=== PATIENT | female | born 1985 | race African-American/Black ===

== ENCOUNTER 2020-11-07 18:16 | Outpatient (CLI) | payer OTHER, SELFPAY ==
--- NOTE | ~2020-11-07 | CT_ITS ---
EXAMINATION: CTA chest PE protocol DATE: 11/07/2020 19:40 INDICATION: Shortness of breath, history of pulmonary embolism TECHNIQUE: Computed tomography angiography (CTA) of the chest was performed with 100 mL Omnipaque-350 intravenous contrast timed to evaluate the pulmonary arteries. Coronal maximum intensity projection 3D-reconstructions were created by the technologist. The dose-length product (DLP) was 815.11 mGy-cm. Automated exposure control and iterative reconstruction technique were employed. COMPARISON: None. FINDINGS: The pulmonary arteries are well-opacified. No pulmonary embolism is identified. There is a 1.4 cm right thyroid nodule, previously evaluated by thyroid ultrasound. The lungs are free of acute opacities. There is no pleural effusion or pneumothorax. A 3 mm nodule in the superior segment of the left lower lobe likely reflects old granulomatous disease. No pathologically enlarged thoracic lymph nodes are identified. The heart size is normal. IMPRESSION: 1. No pulmonary embolism or acute cardiopulmonary abnormality. Reviewed, dictated and finalized at location A. [employer]
[2020-11-07 20:00] LABS: Estimated Glomerular Filt Rate > 60
== END 2020-11-07 18:17 | disposition home or self-care (01) ==
LOC: ANHIMG 18:22
DX: Z86.711 Personal history of pulmonary embolism (principal); U07.1 COVID-19
CPT/HCPCS: 71275; Q9967

== ENCOUNTER 2021-03-25 16:47 | Emergency (ER) | payer OTHER, SELFPAY ==
--- NOTE | ~2021-03-25 | XR_ITS ---
XR foot RT min 3V DATE: 03/25/2021 17:09 INDICATION: Stubbed right fifth toe yesterday. Pain. TECHNIQUE: 4 views COMPARISON: None FINDINGS: No fracture or dislocation, periosteal reaction or bone destruction. Mild posterior and sli ght plantar calcaneal enthesopathy. IMPRESSION: No fracture is detected Reviewed, dictated and finalized at location A. IMPRESSION: No fracture is detected
[2021-03-25 16:56] VITALS: BP 119/84; PULSE 128; RESP 16; TEMP 37.3; O2SAT 99
--- NOTE | 2021-03-25 16:56 | ED.LOWEXIN ---
HPI - Extremity Injury (Lower) General Chief Complaint: Extremity Injury, Lower Stated Complaint: right foot pinky toe Time Seen by Provider: 03/25/21 16:56 Source: patient and RN notes reviewed Mode of arrival: ambulatory Limitations: no limitations History of Present Illness HPI Narrative: 35-year-old female presents to the [facility] with complaints of right 5th toe pain. Patient states she was walking and hit the toe on the side of a door. Describes the pain is similar to when she has broken her toe in the past. No swelling or bruising noted. Sensation intact. Positive pedal pulse. Capillary refill under 2 seconds. Denies any other symptoms. Related Data Home Medications Medication Instructions Recorded Confirmed albuterol 03/25/21 clonazepam 03/25/21 hydroxyzine HCl 03/25/21 lithium carbonate mg PO 03/25/21 quetiapine 03/25/21 quetiapine 03/25/21 sertraline [Zoloft] mg 03/25/21 Allergies Allergy/AdvReac Type Severity Reaction Status Date / Time celecoxib Allergy Unknown Dyspnea / Verified 02/19/16 09:53 SOB latex Allergy Unknown Hives / Verified 02/19/16 09:53 Red Face Review of Systems Review of Systems: All systems reviewed & are unremarkable except as noted in HPI and below Constitutional: Constitutional: Reports no additional constitutional complaints, Denies chills and Denies fever(s) ENT: Reports system reviewed and no additional complaints, except as documented Cardiovascular: Cardiovascular: Reports no additional cardiovascular complaints and Denies chest pain Respiratory: Respiratory: Reports no additional respiratory complaints, Denies cough, Denies dyspnea and Denies wheezing Gastrointestinal: Gastrointestinal: Reports no additional gastrointestinal complaints Musculoskeletal: Musculoskeletal: Reports as per HPI Comments: Right fifth toe pain Integumentary/Breasts: Skin/Breast: Reports system reviewed and no additional complaints, except as docu and Denies rash Neurologic: Reports system reviewed and no additional complaints, except as documented Psychiatric: Psychiatric: Reports no additional psychiatric complaints PMFSH Comments At the time of my signature, I reviewed and agree with the nursing past medical, surgical, social, and family history. There is no relevant family history pertinent to the patient complaint. Exam Const: General: healthy appearing, no acute distress and alert Nutritional Appearance: well nourished and obese Orientation/consciousness: patient oriented x3 HENMT: Head: normal to inspection Neck: Neck: normal visual inspection Chest: Chest palpation & inspection: normal inspection of the chest Resp: Effort & Inspection: normal respiratory effort and no use of accessory muscles Auscultation: clear to auscultation bilaterally, no crackles, no rales, no rhonchi and no wheezes Cardio: Rate: regular rate Rhythm: regular rhythm Skin: General skin exam: normal color Rashes: no rashes Wounds: no wounds Neuro: General: patient oriented x3, moves all extremities, no meningeal signs and no focal motor deficits Speech: normal speech Gait exam (Neuro): Normal gait present Extrem: General: normal to inspection Right lower extremity: normal to inspection, full ROM and foot Left lower extremity: normal to inspection and full ROM Ankle/foot/toe images: 1. Tenderness to palpation without bruising or swelling. No redness or signs of infection. Sensation intact distal to pain Psych: Appearance: grossly normal Mental Status: mental status grossly normal Attitude: cooperative Thought content: Yes Normal thought content present Course Course Emergency Course: Discharge instructions reviewed with patient, as well as provided in writing per nursing staff. The instructions also include specific and strict return/GO TO THE ER as well as f/u information. All questions have been answered, and the patient deny any further questions with di
== END 2021-03-25 17:57 | disposition home or self-care (01) ==
PROVIDERS: Emergency Provider Nurse Practitioner
DX: S93.504A Unspecified sprain of right lesser toe(s), initial encounter (principal); W22.8XXA Striking against or struck by other objects, initial encounter; D75.9 Disease of blood and blood-forming organs, unspecified; J45.909 Unspecified asthma, uncomplicated
CPT/HCPCS: 73630; 99213; G0463

== ENCOUNTER 2022-03-03 12:59 | Emergency (ER) | payer OTHER, SELFPAY ==
--- NOTE | 2022-03-03 13:10 | ED.URI ---
HPI - URI/Sore Throat General Chief Complaint: Upper Respiratory Infection Stated Complaint: + covid Time Seen by Provider: 03/03/22 13:35 Source: patient and RN notes reviewed Mode of arrival: ambulatory Limitations: no limitations History of Present Illness HPI Narrative: 36-year-old female presents with concern for positive COVID test and cough. Reports she has a history of asthma. Reports her symptoms started on Friday. Reports she is taking [id number] sinus medicine with no relief. She reports exertional shortness of breath, she has been using her albuterol inhaler, last used just prior to arrival. MD elicited complaint: cough and sore throat Related Data Home Medications Medication Instructions Recorded Confirmed albuterol 03/25/21 02/13/22 quetiapine 03/25/21 quetiapine 03/25/21 02/13/22 sertraline [Zoloft] mg 03/25/21 02/13/22 lamotrigine 03/03/22 medroxyprogesterone mg IM 03/03/22 Allergies Allergy/AdvReac Type Severity Reaction Status Date / Time celecoxib Allergy Unknown Dyspnea / Verified 03/03/22 13:47 SOB latex Allergy Unknown Hives / Verified 03/03/22 13:47 Red Face Review of Systems Review of Systems: CONSTITUTIONAL: Reports malaise, chills, sweats EYES: Denies visual changes, redness, or discharge. ENT: Reports rhinorrhea, congestion, sinus pain, and sore throat. CARDIOVASCULAR: Denies chest pain, palpitations, or edema. RESPIRATORY: Reports cough, exertional dyspnea. GASTROINTESTINAL: Denies abdominal pain, nausea, vomiting, diarrhea SKIN: Denies rash or itching. MUSCULOSKELETAL: Reports myalgia. NEUROLOGIC: Denies headache. All systems reviewed & are unremarkable except as noted in HPI and below PMFSH Past Medical History Medical History Asthma Depression GERD (gastroesophageal reflux disease) History of blood clots Thyroid disease Surgical History Surgical History History of prior ablation treatment cardiac History of tubal ligation Family History Family History Mother Diabetes mellitus Heart disease Cerebrovascular accident Hypertension Other Breast cancer Hypertension Grandparent Breast cancer Hypertension Social History Social History Smoking status: Never smoker Alcohol intake: current Alcohol use details: social 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 There is no relevant family history pertinent to the presenting complaint Exam Narrative: GENERAL: Nontoxic-appearing and in no acute distress. HEAD: Normocephalic EYES: PERRLA, conjunctivae clear ENT: Nares clear, clear discharge. Mucous membranes moist. TM pearly nova with dull light reflex bilaterally; no tragal tenderness. Oropharynx not erythematous without lesions. Tonsils not enlarged and without exudate, no drooling, no hoarseness, no trismus, uvula midline. NECK: Supple. No lymphadenopathy CHEST: Clear to auscultation, breath sounds equal. No wheezing, rhonchi, rales, or stridor. No respiratory distress, speaks in full sentences. Cough noted HEART: Regular rate and rhythm. No murmur heard. SKIN: Warm, dry, no rash. NEURO: Alert and oriented x3. PSYCH: Normal mood and affect Course Course Emergency Course: Patient is aware of diagnosis, understands and agrees to treatment plan. Anticipatory guidance given. Patient agrees to follow-up as directed and is aware of reasons to seek care at the emergency department. Portions of this record may have been created with voice recognition software Level of Care: Express Care Visit Vital Signs Vital signs: Reviewed. MDM - URI/Sore Throat MDM Narrative Medical decision óscar
[2022-03-03 13:26] VITALS: BP 110/74; PULSE 95; RESP 18; TEMP 37.7; O2SAT 100
== END 2022-03-03 13:57 | disposition home or self-care (01) ==
PROVIDERS: Emergency Provider Nurse Practitioner
DX: U07.1 COVID-19 (principal); J45.909 Unspecified asthma, uncomplicated; K21.9 Gastro-esophageal reflux disease without esophagitis; Z86.2 Personal history of diseases of the blood and blood-forming organs and certain disorders involving the immune mechanism; F32.A Depression, unspecified; E07.9 Disorder of thyroid, unspecified
CPT/HCPCS: 99213; G0463

== ENCOUNTER 2022-05-08 16:00 | Emergency (ER) | payer OTHER, SELFPAY ==
--- NOTE | 2022-05-08 16:02 | ED.EAR ---
HPI - Ear Problem General Chief complaint: Skin/Abscess/Foreign Body Stated complaint: L EAR ABSCESS Time Seen by Provider: 05/08/22 16:02 Source: patient Mode of arrival: ambulatory Limitations: no limitations History of Present Illness HPI Narrative: Ms. Hdz is a 36-year-old female patient presenting to the clinic today with complaints of a left ear abscess x 3 days. Has gotten abscess on her ear lobes before. Reports that she is having some discomfort over her lymphnode as well. Related Data Home Medications Medication Instructions Recorded Confirmed albuterol 03/25/21 02/13/22 quetiapine 300 mg tablet 03/25/21 02/13/22 quetiapine 50 mg tablet 03/25/21 sertraline 50 mg tablet (Zoloft) mg 03/25/21 02/13/22 lamotrigine 25 mg tablet 03/03/22 medroxyprogesterone 150 mg/mL mg IM 03/03/22 intramuscular syringe Allergies Allergy/AdvReac Type Severity Reaction Status Date / Time celecoxib Allergy Unknown Dyspnea / Verified 03/03/22 13:47 SOB latex Allergy Unknown Hives / Verified 03/03/22 13:47 Red Face Review of Systems Review of Systems: Pertinent positives per HPI. Patient denies any fever, chills, rash, headache, visual changes, dizziness, cough, runny nose, sore throat, shortness of breath, chest pain, palpitations, nausea, vomiting, diarrhea, constipation, abdominal pain, or any urinary issues. 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 There is no relevant family history pertinent to the patient complaint. Exam Narrative: General: Well-developed, well nourished, in no apparent distress Head: Normocephalic, atraumatic Ears: dime sized abscess to the left ear lobe with pustule head in the center, tenderness to palpation over left post auricle node, TMs intact and clear, ear canals clear, no drainage, grossly hearing normal. Neck: Supple, trachea midline, no enlargement of anterior or posterior cervical nodes, no thyroid masses or goiter palpable. Cardio: Regular rate and rhythm, s1 and s2 normal, no murmur appreciated. Resp: Clear to auscultation bilaterally anteriorly and posteriorly, no rhonchi, rales, wheezing or rubs Course Course Emergency Course: Portions of this record may have been created with voice recognition software. Level of Care: Express Care Visit Vital Signs Vital signs: Vital signs reviewed Procedures Abscess I/D ear: Date of Incision: 05/08/22 Side (if applicable): left (ear lobe) Technique: needle aspiration Amount of fluid expressed (mL): 0 I&D Results: Pus and Blood Complications: other (none) Abcess I&D Additional Comments: Attempted needle aspiration without success Used the 18-gauge needle to arturo pustule head and culture was obtained. Patient tolerated well Medical Decision Making MDM Narrative Medical decision making narrative: At the time of visit patient is resting comfortably on the exam table. An 18 gauge needle was used to arturo the ear lobe abscess. Noreen
[2022-05-08 16:10] VITALS: BP 123/82; PULSE 118; RESP 16; TEMP 36.6; O2SAT 100
== END 2022-05-08 16:28 | disposition home or self-care (01) ==
PROVIDERS: Emergency Provider Nurse Practitioner Family
DX: H60.02 Abscess of left external ear (principal); J45.909 Unspecified asthma, uncomplicated; K21.9 Gastro-esophageal reflux disease without esophagitis; E07.9 Disorder of thyroid, unspecified; Z86.2 Personal history of diseases of the blood and blood-forming organs and certain disorders involving the immune mechanism
CPT/HCPCS: 10060; 87070; 87075; 87205; 99213; G0463

== ENCOUNTER 2022-06-03 17:58 | Emergency (ER) | payer OTHER, SELFPAY ==
--- NOTE | 2022-06-03 18:02 | ED.HA ---
HPI - Headache General Chief Complaint: Headache Stated Complaint: HEADACHE Time Seen by Provider: 06/03/22 18:02 Source: patient and RN notes reviewed History of Present Illness HPI Narrative: Patient is a 36-year-old female who presents the urgent care with complaints of a headache for the last 2 to 3 weeks. Patient states that she went to the [facility] emergency room on in which they did CT scans and lab work. Patient states that nothing showed on the CT scan and they did give her a migraine cocktail which took off the edge . Patient states that since then she has been taking Excedrin and Tylenol without any improvement. Patient states that they did encourage her to do a spinal tap to rule out spinal meningitis and she refused. Patient denies any recent illness or fevers. 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 Patient denies of any sinus symptoms. States that her headache is targeted to the back of the head, the frontal and behind the eyes. other acute complaints. No acute distress noted. Patient aware of the plan of care. Some parts of this dictation were generated by voice recognition software and may contain typographical and/or grammatical inaccuracies. Related Data Home Medications Medication Instructions Recorded Confirmed albuterol 90 mcg/actuation aerosol 90 mcg inhalation PRN PRN 03/25/21 06/03/22 inhaler Shortness Of Breath Or Wheezing quetiapine 300 mg tablet 300 mg PO HS 03/25/21 06/03/22 quetiapine 50 mg tablet 50 mg PO DAILY 03/25/21 06/03/22 sertraline 50 mg tablet (Zoloft) 50 mg PO DAILY 03/25/21 06/03/22 lamotrigine 25 mg tablet 25 mg PO DAILY 03/03/22 06/03/22 medroxyprogesterone 150 mg/mL 150 mg IM [id number] 03/03/22 06/03/22 intramuscular syringe Allergies Allergy/AdvReac Type Severity Reaction Status Date / Time celecoxib Allergy Unknown Dyspnea / Verified 06/03/22 18:10 SOB latex Allergy Unknown Hives / Verified 06/03/22 18:10 Red Face Review of Systems Review of Systems: CONSTITUTIONAL: Denies fever, chills, or sweats. EYES: Denies visual changes, redness, or discharge. ENT: Denies rhinorrhea, congestion, sore throat, or otalgia. CARDIOVASCULAR: Denies chest pain, palpitations, or edema. RESPIRATORY: Denies cough or dyspnea. GASTROINTESTINAL: Denies abdominal pain, nausea, vomiting, or diarrhea. GENITOURINARY: Denies dysuria or hematuria. SKIN: Denies rash or itching. MUSCULOSKELETAL: Denies back pain, joint pain, or myalgia. NEUROLOGIC: Reports of intermittent headaches for the last 2 to 3 weeks All other systems reviewed are negative, except as documented in HPI. 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 There is no relevant family history pertinent to the patient complaint. Exam Narrative: GENERAL: This is a well-nourished, well-developed patient, in no apparent distress. HEAD: normocephalic, a
[2022-06-03 18:07] VITALS: BP 119/85; PULSE 104; RESP 16; TEMP 37; O2SAT 99
[2022-06-03 18:16] VITALS: BP 119/85; PULSE 104; RESP 16; TEMP 37; O2SAT 99
== END 2022-06-03 18:34 | disposition home or self-care (01) ==
PROVIDERS: Emergency Provider Nurse Practitioner Family
DX: R51.9 Headache, unspecified (principal); J45.909 Unspecified asthma, uncomplicated; K21.9 Gastro-esophageal reflux disease without esophagitis; E07.9 Disorder of thyroid, unspecified; F32.A Depression, unspecified; Z86.2 Personal history of diseases of the blood and blood-forming organs and certain disorders involving the immune mechanism
CPT/HCPCS: 99213; G0463